=== PATIENT | female | born 1955 | race Caucasian/White ===

== ENCOUNTER 2018-04-27 11:26 | Inpatient (IN) ==
[2018-04-27] MEDS ORDERED: HYDROmorphone 2 MG/ML VIAL IV PRN ×2 (11:30→15:21)
[2018-04-27] MEDS ORDERED: ERTAPENEM 1 GM in 0.9 % SODIUM CHLORIDE 50 ML IV SCH (11:30)
[2018-04-27] MEDS ORDERED: 0.9 % SODIUM CHLORIDE 1,000 ML IV SCH (11:30)
[2018-04-27] MEDS ORDERED: ONDANSETRON 4 MG/2 ML VIAL IV PRN ×3 (11:30→16:35)
--- NOTE | 2018-04-27 12:03 | XRay Report ---
CLINICAL INFORMATION: preop emergency COMPARISON: None. FINDINGS: The heart size, mediastinum and pulmonary vessels are unremarkable. The lungs are clear. There are no effusions. The bones and soft tissues are within normal limits. IMPRESSION: Normal chest. Interpreted and Authenticated by: Lance Anglin 04/27/18
[2018-04-27] MEDS ORDERED: metroNIDAZOLE 500 MG/100 ML BAG IV ONE (12:15)
[2018-04-27 12:29] LABS: Mean Cell Volume 88.2 fL (80.0-100.0); Mean Corpuscular HGB Conc 33.3 g/dL (31.0-36.0); Mean Corpuscular Hemoglobin 29.4 pg (26.0-34.0); Platelet Count 364 K/mcL (140-440); RBC 5.28 M/mcL (4.00-5.20); Red Cell Distribution Width 13.2 % (11.5-14.5)
[2018-04-27 12:43] LABS: C-Reactive Protein 1.9 mg/dl (0.0-0.8)
[2018-04-27 12:47] LABS: ALT/SGPT 14 U/l (0-40); Albumin 4.5 gm/dL (3.2-5.2); Albumin/Globulin Ratio 1.3 (1.0-2.3); Alkaline Phosphatase 102 U/L (39-117); Bilirubin,Direct < 0.2 mg/dL (0.0-0.3); Blood Urea Nitrogen 16 mg/dl (6-20); Gamma Glutamyl Transpeptidase 15 U/L (5-36); Uric Acid 4.7 mg/dL (2.5-8.0)
[2018-04-27 12:54] LABS: Hemoglobin A1C 10.3 % HGB (4.0-6.0)
[2018-04-27 13:00] LABS: Band Neutrophils % 1 % (0-10); Lymphocytes % 16 % (15-49); Monocytes % (Manual) 7 % (1-12); Platelet Estimate NORMAL (NORMAL); RBC Morphology NORMAL (NORMAL); Segmented Neutrophils % 76 % (38-78)
[2018-04-27] MEDS ORDERED: 0.9 % SODIUM CHLORIDE 10 ML SYRINGE IV SCH (14:00)
[2018-04-27] MEDS ORDERED: fentaNYL 100 MCG/2 ML VIAL IV ONE (14:10)
[2018-04-27] MEDS ORDERED: LIDOCAINE HCL/PF 100 MG/5 ML SYRINGE IV ONE (14:10)
[2018-04-27] MEDS ORDERED: MIDAZOLAM 2 MG/2 ML VIAL IV ONE (14:10)
[2018-04-27] MEDS ORDERED: SUCCINYLCHOLINE 20 MG/ML ML IV ONE (14:10)
[2018-04-27] MEDS ORDERED: DEXAMETHASONE 10 MG/ML VIAL IV ONE (14:10)
[2018-04-27] MEDS ORDERED: PROPOFOL 200 MG/20 ML VIAL IV ONE (14:10)
[2018-04-27] MEDS ORDERED: ONDANSETRON 4 MG/2 ML VIAL IV ONE (14:10)
[2018-04-27] MEDS ORDERED: NEOSTIGMINE 1 MG/ML VIAL IV ONE (14:10)
[2018-04-27] MEDS ORDERED: KETAMINE 100 MG/ML ML IV ONE (14:10)
[2018-04-27] MEDS ORDERED: ROCURONIUM 10 MG/ML ML IV ONE (14:10)
[2018-04-27] MEDS ORDERED: GLYCOPYRROLATE 0.2 MG/ML VIAL IV ONE (14:10)
--- NOTE | 2018-04-27 15:09 | Brief Operative Note ---
Date of procedure: 04/27/18 Pre-op diagnosis: strangulated umbilical hernia Post-op diagnosis: other (strangulated umbilical hernia with small bowel obstruction) Procedure: exploratory laparotomy with umbilical hernia repair Grafts/Implants: No Anesthesia: GETA Findings: large volume of omentum and small bowel tightly strangulated in hernia sac with ischemia but no necrosis Complications: none Surgeon: Scott Gilman Estimated blood loss (cc): 10 Specimens Removed/Pathology: none sent Condition: stable Disposition: PACU
[2018-04-27] MEDS ORDERED: KETOROLAC 30 MG/ML VIAL IV PRN (15:21)
[2018-04-27] MEDS ORDERED: LACTATED RINGERS 250 ML IV PRN (15:21)
[2018-04-27] MEDS ORDERED: PROMETHAZINE 25 MG/ML VIAL IV PRN (15:21)
[2018-04-27] MEDS ORDERED: NALOXONE HCL 0.4 MG/ML VIAL IV PRN (15:21)
[2018-04-27] MEDS ORDERED: FLUMAZENIL 0.1 MG/ML ML IV PRN (15:21)
[2018-04-27] MEDS ORDERED: MEPERIDINE 25 MG/ML SYRINGE IV PRN (15:21)
[2018-04-27] MEDS ORDERED: ACETAMINOPHEN 1,000 MG/100 ML BOTTLE IV ONE (15:21)
[2018-04-27] MEDS ORDERED: BENZOCAINE/MENTHOL 1 LOZENGE PO PRN (15:21)
[2018-04-27] MEDS ORDERED: METHOCARBAMOL 1,000 MG/10 ML VIAL IV PRN (15:21)
[2018-04-27] MEDS ORDERED: IPRATROPIUM/ALBUTEROL 3 ML AMPUL.NEB NEB PRN (15:21)
[2018-04-27] MEDS ORDERED: LACTATED RINGERS 1,000 ML IV SCH (15:30)
[2018-04-27] MEDS: fentaNYL 100 MCG/2 ML VIAL IV PRN ×2 (15:41→15:56)
[2018-04-27] MEDS ORDERED: PANTOPRAZOLE 40 MG VIAL IV SCH (17:00)
[2018-04-27] MEDS: PANTOPRAZOLE 40 MG VIAL IV SCH (17:37)
[2018-04-27] MEDS: METOCLOPRAMIDE 10 MG/2 ML VIAL IV SCH (17:37)
[2018-04-27] MEDS: 0.9 % SODIUM CHLORIDE 1,000 ML IV SCH (17:46)
[2018-04-27] MEDS: HYDROmorphone 2 MG/ML VIAL IV PRN (21:11)
[2018-04-27] MEDS: 0.9 % SODIUM CHLORIDE 10 ML SYRINGE IV SCH (22:24)
[2018-04-28] MEDS: METOCLOPRAMIDE 10 MG/2 ML VIAL IV SCH ×5 (00:03→23:54)
[2018-04-28] MEDS: 0.9 % SODIUM CHLORIDE 1,000 ML IV SCH ×4 (00:11→20:54)
[2018-04-28] MEDS: HYDROmorphone 2 MG/ML VIAL IV PRN ×3 (04:16→23:57)
[2018-04-28] MEDS: 0.9 % SODIUM CHLORIDE 10 ML SYRINGE IV SCH ×3 (05:11→21:07)
[2018-04-28 06:38] LABS: Basophils # (Auto) 0 K/mcL (0.0-0.3); Basophils % (Auto) 0.3 % (0.0-2.0); Eosinophils # (Auto) 0 K/mcL (0.0-0.7); Eosinophils % (Auto) 0 % (0.0-7.0); Granulocytes % (Auto) 82.5 % (38.0-78.0); Lymphocytes % (Auto) 10.3 % (15.5-49.0); Mean Cell Volume 89.9 fL (80.0-100.0); Mean Corpuscular HGB Conc 32.9 g/dL (31.0-36.0); Mean Corpuscular Hemoglobin 29.6 pg (26.0-34.0); Monocytes # (Auto) 0.7 K/mcL (0.1-0.9); Monocytes % (Auto) 6.9 % (1.0-12.0); Platelet Count 269 K/mcL (140-440); RBC 4.26 M/mcL (4.00-5.20); Red Cell Distribution Width 13.3 % (11.5-14.5)
[2018-04-28] MEDS: PANTOPRAZOLE 40 MG VIAL IV SCH ×2 (06:48→17:14)
[2018-04-28 07:09] LABS: ALT/SGPT 11 U/l (0-40); Albumin 3.6 gm/dL (3.2-5.2); Albumin/Globulin Ratio 1.4 (1.0-2.3); Alkaline Phosphatase 74 U/L (39-117); Bilirubin,Direct < 0.2 mg/dL (0.0-0.3); Blood Urea Nitrogen 17 mg/dl (6-20); Gamma Glutamyl Transpeptidase 10 U/L (5-36); Uric Acid 5.9 mg/dL (2.5-8.0)
[2018-04-28] MEDS: ERTAPENEM 1 GM in 0.9 % SODIUM CHLORIDE 50 ML IV SCH (09:03)
[2018-04-28] MEDS ORDERED: INSULIN LISPRO 1 UNIT/0.01 ML UNIT SQ ONE (13:17)
[2018-04-28] MEDS ORDERED: MAGNESIUM SULFATE 4 GM/100 ML BAG IV ONE (13:30)
[2018-04-28] MEDS: ACETAMINOPHEN 1,000 MG/100 ML BOTTLE IV PRN (13:53)
--- NOTE | 2018-04-28 16:11 | General Surgery Progress Note ---
Subjective Patient reports: feels better, pain is less, flatus, no bowel movement, afebrile Narrative: Note initiated : 04/28/18 at 4:09 pm Service Date, if different from initiated Date: [] Patient: Kenton Dumont 62 y/o F admitted on 04/27/18 for Incarcerated Hernia With Strangulated Bowel. Chief Complaint: [Patient is doing well. She states that she is had good control of her pain. She has active bowel sounds and has passed flatus. She had clear liquids early and has tolerated it very well. No complaints of nausea.] Objective Temp Pulse Resp BP Pulse Ox 98.1 F 72 16 135/72 96 04/28/18 12:00 04/28/18 12:00 04/28/18 12:00 04/28/18 12:00 04/28/18 12:00 - Additional Data Intake & Output - Last 24 hours: Intake & Output 04/26/18 04/27/18 04/28/18 04/29/18 05:59 05:59 05:59 05:59 Intake Total 2938 / 2938 1150 / 1150 Output Total 400 / 400 300 / 300 Balance 2538 / 2538 850 / 850 Weight 215 lb 215 lb - General physical appearance well developed, well nourished, no distress - Eyes PERRL, normal ocular movement - ENT normal pinna, normal nares, normal mucosa, no hearing loss, no congestion - Neck no masses, no bruits, trachea midline, no lymphadectomy, no venous distension - Respiratory normal expansion, normal respiratory effort, clear to percussion, clear to auscultation - Cardiovascular Cardiovascular exam: Present: normal rate and rhythm, RRR, +S1, +S2. Absent: JVD, tachycardia - Abdomen tender (mild incisional tenderness; good active bowel sounds), bowel sounds ( present), surgical scars (none), masses (none) - Integumentary no rash, no growths, no abnormal pigmentation - Neurologic normal coordination, normal sensation - Musculoskeletal normal gait, normal posture - Psychiatric oriented to time, oriented to person, oriented to place, speech is normal, memory intact - Labs 04/28/18 04:57 04/28/18 04:57 Diabetes panel 04/28/18 Range/Units 04:57 Sodium 138 (133-145) mmol/L Potassium 4.3 (3.3-5.1) mmol/L Chloride 105 (96-108) mmol/L Carbon Dioxide 17 L (22-30) mmol/L BUN 17 (6-20) mg/dl Creatinine 0.8 (0.6-1.1) mg/dl Glucose 306 H (70-105) mg/dL Calcium 8.7 (8.6-10.4) mg/dl AST 11 (0-37) U/l ALT 11 (0-40) U/l Alkaline Phosphatase 74 (39-117) U/L Total Protein 6.2 (5.9-8.4) gm/dL Albumin 3.6 (3.2-5.2) gm/dL Triglycerides 92 (<150) mg/dl Calcium panel 04/28/18 Range/Units 04:57 Calcium 8.7 (8.6-10.4) mg/dl Phosphorus 4.6 H (2.7-4.5) mg/dL Albumin 3.6 (3.2-5.2) gm/dL Pituitary panel 04/28/18 Range/Units 04:57 Sodium 138 (133-145) mmol/L Potassium 4.3 (3.3-5.1) mmol/L Chloride 105 (96-108) mmol/L Carbon Dioxide 17 L (22-30) mmol/L BUN 17 (6-20) mg/dl Creatinine 0.8 (0.6-1.1) mg/dl Glucose 306 H (70-105) mg/dL Calcium 8.7 (8.6-10.4) mg/dl Adrenal panel 04/28/18 Range/Units 04:57 Sodium 138 (133-145) mmol/L Potassium 4.3 (3.3-5.1) mmol/L Chloride 105 (96-108) mmol/L Carbon Dioxide 17 L (22-30) mmol/L BUN 17 (6-20) mg/dl Creatinine 0.8 (0.6-1.1) mg/dl Glucose 306 H (70-105) mg/dL Calcium 8.7 (8.6-10.4) mg/dl Total Bilirubin 0.5 (0.0-1.0) mg/dL AST 11 (0-37) U/l ALT 11 (0-40) U/l Alkaline Phosphatase 74 (39-117) U/L Total Protein 6.2 (5.9-8.4) gm/dL Albumin 3.6 (3.2-5.2) gm/dL Assessment and Plan (1) Strangulated umbilical hernia Status: Acute Assessment and plan: Patient has early return of intestinal activity Diet will be advanced Current Visit: No (2) DM (diabetes mellitus) Status: Chronic Assessment and plan: Blood sugars have been running high Sliding scale increase to moderate scale Current Visit: No - Time Spent With Patient Total time spent is greater than 50% in coordination of care (as documented) at patient's floor/unit and/or counseling patient:
[2018-04-28] MEDS: INSULIN LISPRO 1 UNIT/0.01 ML UNIT SQ SCH ×2 (17:14→21:06)
[2018-04-28] MEDS ORDERED: INSULIN LISPRO 1 UNIT/0.01 ML UNIT SQ SCH (18:00)
[2018-04-29] MEDS: 0.9 % SODIUM CHLORIDE 1,000 ML IV SCH ×3 (01:57→10:04)
[2018-04-29] MEDS: ACETAMINOPHEN 1,000 MG/100 ML BOTTLE IV PRN ×2 (03:07→12:09)
[2018-04-29] MEDS: 0.9 % SODIUM CHLORIDE 10 ML SYRINGE IV SCH (05:18)
[2018-04-29] MEDS: METOCLOPRAMIDE 10 MG/2 ML VIAL IV SCH ×2 (05:32→11:49)
[2018-04-29 06:38] LABS: Basophils # (Auto) 0.1 K/mcL (0.0-0.3); Basophils % (Auto) 0.8 % (0.0-2.0); Eosinophils # (Auto) 0.1 K/mcL (0.0-0.7); Eosinophils % (Auto) 1.3 % (0.0-7.0); Granulocytes % (Auto) 69.4 % (38.0-78.0); Lymphocytes # (Auto) 1.8 K/mcL (1.5-4.8); Lymphocytes % (Auto) 21.6 % (15.5-49.0); Mean Corpuscular HGB Conc 33.6 g/dL (31.0-36.0); Mean Corpuscular Hemoglobin 30.3 pg (26.0-34.0); Monocytes # (Auto) 0.6 K/mcL (0.1-0.9); Monocytes % (Auto) 6.9 % (1.0-12.0); Platelet Count 223 K/mcL (140-440); RBC 3.87 M/mcL (4.00-5.20); Red Cell Distribution Width 13.2 % (11.5-14.5)
[2018-04-29] MEDS: INSULIN LISPRO 1 UNIT/0.01 ML UNIT SQ SCH ×2 (06:47→11:49)
[2018-04-29] MEDS: PANTOPRAZOLE 40 MG VIAL IV SCH (06:48)
--- NOTE | 2018-04-29 06:57 | Operative Note ---
DATE OF OPERATION: 04/27/2018 PREOPERATIVE DIAGNOSIS: Strangulated umbilical hernia. POSTOPERATIVE DIAGNOSIS: Strangulated umbilical hernia with small bowel obstruction. PROCEDURE: Exploratory laparotomy with umbilical hernia repair. SURGEON: Scott Gilman MD FINDINGS: Large volume of omentum with small bowel tightly strangulated and a large hernia sac with ischemia, but no necrosis or perforation, turbid fluid in the hernia sac. DESCRIPTION OF PROCEDURE: Under general anesthesia, the patient's abdomen was prepped and draped in the sterile field. A time-out procedure was carried out as per protocol. A midline incision was made. The incision was extended down to the large tense, edematous hernia sac. The hernia sac was circumferentially dissected away from the skin and subcutaneous tissue down to the fascia. The neck of the sac was opened and turbid fluid exuded from the sac. This was cultured and irrigated. The fascial defect was then opened in the midline cephalad and caudad to allow better access to the peritoneal cavity. The hernia sac was then dissected away from the bowel and the omentum. The omentum was dusky argueta but easily pinked up once the neck of the sac was opened. The bowel was edematous but it also had good perfusion immediately after releasing the tension on the neck of the bowel. The fascia was opened more and the tissue was irrigated after which it was pushed back into the peritoneal cavity. It was felt that the defect could be easily primarily repaired. It was felt not to be safe to place mesh because of the quality of the fluid that came from the sac. The fascial edges were trimmed and the incision was closed using [id number] #1 Prolene interrupted suture. These were tied without difficulty and without major tension. Subcutaneous tissue was irrigated and then closed with 2-0 Monocryl. Skin was closed with ad. The patient tolerated the procedure well. A dressing was placed. She was awakened, transferred to a bed and taken to the postanesthetic care unit in stable, satisfactory condition. LCS:[email or web address] Job ID: [id number] Doc ID: [id number] Scott Gilman M.D.
[2018-04-29 07:10] LABS: ALT/SGPT 7 U/l (0-40); Albumin 3.1 gm/dL (3.2-5.2); Albumin/Globulin Ratio 1.3 (1.0-2.3); Alkaline Phosphatase 71 U/L (39-117); Bilirubin,Direct < 0.2 mg/dL (0.0-0.3); Blood Urea Nitrogen 11 mg/dl (6-20); Gamma Glutamyl Transpeptidase 11 U/L (5-36); Uric Acid 4.4 mg/dL (2.5-8.0)
[2018-04-29] MEDS: ERTAPENEM 1 GM in 0.9 % SODIUM CHLORIDE 50 ML IV SCH (08:43)
--- NOTE | 2018-04-29 11:33 | Discharge Summary ---
Providers - Providers Patient information: Note initiated : 04/29/18 at 11:29 am Service Date, if different from initiated Date: [] Patient: Kenton Dumont 62 y/o F admitted on 04/27/18 for Incarcerated Hernia With Strangulated Bowel. Chief Complaint: [] Date of admission: 04/27/18 Discharge date: 04/29/18 Attending physician: Scott Gilman Hospitalization Hospital course: 62-year-old female who was transferred from [place], [place] with a strangulated umbilical hernia with bowel obstruction. She had emergent operative treatment with finding of ischemic loop of small bowel and omentum. This had return of good vascularity after the neck of the hernia was enlarged. It was reduced back into the peritoneal cavity and copious irrigation was carried out. The hernia was repaired by primary closure because the fluid in the hernia sac was turbid and had potential infection. The patient has done well. She has had good return of intestinal activity. She is tolerating a soft diet with out difficulty. She is stable for discharge home. Discharge diagnosis: strangulated umbilical hernia Secondary discharge diagnosis: Small bowel obstruction due to #1 Reason for admission: strangulated umbilical hernia Procedures: Umbilical hernia repair with exploratory laparotomy Pertinent studies/significant findings: None Complications: None Exam Temp Pulse Resp BP Pulse Ox 97.8 F 59 L 15 144/82 90 04/29/18 07:10 04/29/18 07:10 04/29/18 07:10 04/29/18 07:10 04/29/18 07:10 - General physical appearance well developed, well nourished, no distress - Eyes PERRL, normal ocular movement - ENT normal pinna, normal nares, normal mucosa, no hearing loss, no congestion - Head Head exam IM: Present: atraumatic, normocephalic - Neck no masses, no bruits, trachea midline, no lymphadectomy, no venous distension - Cardiovascular Cardiovascular exam IM: Present: normal rate and rhythm - Respiratory normal expansion, normal respiratory effort, clear to percussion, clear to auscultation - Abdomen Abdomen: Present: soft, tender (mild tenderness of incision with good active bowel sounds; no distention noted), bowel sounds Hernia: Present: none - Genitourinary Present: normal external genitalia - Integumentary Present: no rash, no growths, no abnormal pigmentation - Neurologic Present: normal coordination, normal sensation - Musculoskeletal Present: normal gait, normal posture - Psychiatric Present: oriented to time, oriented to person, oriented to place, speech is normal, memory intact Discharge Plan - Patient/Caregiver Discharge Instructions Activity: increase activity as tolerated Diet: Low Fat Additional Instructions: keep dressings on until he returned to the office Office visit in 2 weeks Advance diet as tolerated Prescriptions: oxyCODONE HCL/ACETAMINOPHEN [Endocet 10-325 mg Tablet] 1 tab PO Q4H PRN #40 tab PRN Reason: Pain - Follow up Plan Disposition: Home, Self-Care Prognosis: Good Rehab Potential: Good I certify that the patient requires SNF services.: No Overall status at discharge: patient is not back to baseline Pending Studies Resuscitation Status Full Code Diet Full Liquid Diet Start ThuApr 28 155 Diagnostic Test (Pha) (Accu-Chek) 1 each FS ACHS PENDING SALE TO [facility] Last Admin: 04/29/18 06:46 Dose: 1 each Admin: 04/28/18 20:57 Dose: 1 each Admin: 04/28/18 17:14 Dose: 1 each Hydromorphone HCl (Dilaudid) 1 mg IV Q2HP PRN PRN Reason: PAIN LEVEL > 6 Last Admin: 04/28/18 23:57 Dose: 1 mg Admin: 04/28/18 20:03 Dose: 1 mg Admin: 04/28/18 04:16 Dose: 1 mg Admin: 04/27/18 21:11 Dose: 1 mg Ertapenem 1 gm/ Sodium (Chloride) 50 mls @ 100 mls/hr IV Q24H PENDING SALE TO [facility] Last Infusion: 04/29/18 09:15 Dose: 0 mls/hr Admin: 04/29/18 08:43 Dose: 100 mls/hr Infusion: 04/28/18 09:33 Dose: 0 mls/hr Admin: 04/28/18 09:03 Dose: 100 mls/hr Sodium Chloride (Sodium Chloride 0.9%) 1,000 mls @ 150 mls/hr IV .Q6H40M PENDING SALE TO [facility] Last Admin: 04/29/18 10:04 Dose: 150 mls/hr Infusion: 04/29/18 10:04 Dose: 0 mls/hr Admin: 04/29/18 03:07 Dose: 150 mls/hr Infusion: 04/29/18 03:07 Dose: 150 mls/hr Admin: 04/29/18 01:57 Dose: Not Given Admin: 04/28/18 20:54 Dose: 150 mls/hr Infusion: 04/28/18 18:38 Dose: 150 mls/hr Admin: 04/28/18 11:57 Dose: 150 mls/hr Infusion: 04/28/18 11:55 Dose: 0 mls/hr Admin: 04/28/18 05:26 Dose: 150 mls/hr Infusion: 04/28/18 05:26 Dose: 150 mls/hr Admin: 04/28/18 00:11 Dose: 150 mls/hr Infusion: 04/28/18 00:11 Dose: 0 mls/hr Admin: 04/27/18 17:46 Dose: 150 mls/hr Acetaminophen (Ofirmev) 1,000 mg in 100 mls @ 200 mls/hr IV Q6HP PRN PRN Reason: PAIN/FEVER > 101 Last Infusion: 04/29/18 03:37 Dose: 0 mls/hr Admin: 04/29/18 03:07 Dose: 200 mls/hr Infusion: 04/28/18 14:30 Dose: 0 mls/hr Admin: 04/28/18 13:53 Dose: 200 mls/hr Insulin Human Lispro (Humalog) 0 unit SQ ACHS PENDING SALE TO [facility]; Protocol Last Admin: 04/29/18 06:47 Dose: 8 unit Admin: 04/28/18 21:06 Dose: 8 unit Admin: 04/28/18 17:14 Dose: 10 unit Metoclopramide HCl (Reglan) 10 mg IV Q6 YANELI Last Admin: 04/29/18 05:32 Dose: 10 mg Admin: 04/28/18 23:54 Dose: 10 mg Admin: 04/28/18 17:14 Dose: 10 mg Admin: 04/28/18 11:55 Dose: 10 mg Admin: 04/28/18 05:26 Dose: 10 mg Admin: 04/28/18 00:03 Dose: 10 mg Admin: 04/27/18 17:37 Dose: 10 mg Pantoprazole Sodium (Protonix) 40 mg IV BIDAC PENDING SALE TO [facility] Last Admin: 04/29/18 06:48 Dose: 40 mg Admin: 04/28/18 17:14 Dose: 40 mg Admin: 04/28/18 06:48 Dose: 40 mg Admin: 04/27/18 17:37 Dose: 40 mg Sodium Chloride (Saline Flush) 10 ml IV Q8 YANELI Last Admin: 04/29/18 05:18 Dose: Not Given Admin: 04/28/18 21:07 Dose: Not Given Admin: 04/28/18 13:57 Dose: Not Given Admin: 04/28/18 05:11 Dose: Not Given Admin: 04/27/18 22:24 Dose: Not Given Shift Summary 04/29/18 04:00 Shift Summary by Malika Rubio Pt up to bathroom with sba to help with IV. Pt reports flatus but no BM. Pain controlled with IV Tylenol and IV Dilaudid. Tegaderm to midline incision in place. Staple intact. Will update wit verbal report Initialized on 04/29/18 04:00 - END OF NOTE
== END 2018-04-29 13:50 | disposition home or self-care (01) | DRG 355 ==
LOC: MEDSUR 11:43
PROVIDERS: ADMIT Family Medicine Adult Medicine; ATTEND Family Medicine Adult Medicine